=== PATIENT | male | born 1955 | race Asian ===

== ENCOUNTER 2016-03-08 14:22 | Outpatient (CLI) | payer OTHER ==
[~2016-03-08 14:22] MED LIST: ASA LOW DOSE81 MG PO; BYSTOLIC10 MG OR; FURO20TA67 PO; KETOROLAC15 MG/ML IJ; LIVALO2 MG OR; LIVALO2 MG PO; LOTENSIN HCT1 TA2 PO; MEDROL DOSEPAK4 MG OR; METHYLPR SS125 MG IJ
== END 2016-03-08 19:10 | disposition home or self-care (01) ==
LOC: LABW 14:22
DX: B35.1 Tinea unguium (principal)
CPT/HCPCS: 36415; 84450; 84460

== ENCOUNTER 2016-07-23 10:38 | Outpatient (CLI) | payer OTHER ==
[2016-07-23 10:58] LABS: PLATELET COUNT 284 K/uL (142-355)
[2016-07-23 11:43] LABS: POTASSIUM 4.1 mmol/L (3.6-5.2); SODIUM 137 mmol/L (136-145)
== END 2016-07-23 11:40 | disposition home or self-care (01) ==
LOC: LAB 10:38
PROVIDERS: Family Medicine
DX: I10 Essential (primary) hypertension (principal); E78.4 Other hyperlipidemia; G47.33 Obstructive sleep apnea (adult) (pediatric); E66.8 Other obesity; E55.9 Vitamin D deficiency, unspecified; Z12.5 Encounter for screening for malignant neoplasm of prostate; E78.00 Pure hypercholesterolemia, unspecified
CPT/HCPCS: 36415; 80053; 80061; 81000; 82043; 82570; 82652; 83735; 84153; 84439; 84443; 84550; 85027

== ENCOUNTER 2017-06-24 10:11 | Outpatient (CLI) | payer OTHER ==
[2017-06-24 10:51] LABS: PLATELET COUNT 255 K/uL (142-355)
[2017-06-24 11:23] LABS: POTASSIUM 3.6 mmol/L (3.6-5.2)
== END 2017-06-24 21:20 | disposition home or self-care (01) ==
LOC: LABW 10:11
PROVIDERS: Family Medicine
DX: I10 Essential (primary) hypertension (principal); E66.8 Other obesity; E79.0 Hyperuricemia without signs of inflammatory arthritis and tophaceous disease; E55.9 Vitamin D deficiency, unspecified; E78.00 Pure hypercholesterolemia, unspecified; G47.33 Obstructive sleep apnea (adult) (pediatric)
CPT/HCPCS: 36415; 80053; 80061; 81000; 82306; 83735; 84439; 84443; 84550; 85027

== ENCOUNTER 2018-04-17 07:15 | Outpatient (CLI) | payer OTHER ==
[2018-04-17 07:57] LABS: PLATELET COUNT 255 K/uL (142-355)
[2018-04-17 08:18] LABS: POTASSIUM 3.7 mmol/L (3.6-5.2)
== END 2018-04-17 19:32 | disposition home or self-care (01) ==
LOC: RESP 07:15 → LABW 07:15
PROVIDERS: Family Medicine
DX: I10 Essential (primary) hypertension (principal); M19.90 Unspecified osteoarthritis, unspecified site; E78.00 Pure hypercholesterolemia, unspecified; E79.0 Hyperuricemia without signs of inflammatory arthritis and tophaceous disease; E55.9 Vitamin D deficiency, unspecified; R60.0 Localized edema; Z13.1 Encounter for screening for diabetes mellitus
CPT/HCPCS: 36415; 80053; 80061; 81000; 82306; 83036; 84154; 84439; 84443; 84550; 85027; 93005

== ENCOUNTER 2018-07-16 12:48 | Outpatient (CLI) | payer OTHER | END 2018-07-16 23:33 | disposition home or self-care (01) | LOC: RESP 12:48 | DX: R94.31 Abnormal electrocardiogram [ECG] [EKG] (principal) | CPT/HCPCS: 93306 ==

== ENCOUNTER 2020-04-12 08:25 | Outpatient (CLI) | payer OTHER ==
[2020-04-12 09:10] LABS: PLATELET COUNT 235 K/uL (142-355)
[2020-04-12 09:26] LABS: POTASSIUM 3.9 mmol/L (3.6-5.2)
== END 2020-04-12 19:35 | disposition home or self-care (01) ==
LOC: LABW 08:25
PROVIDERS: ATTEND Family Medicine
DX: E79.0 Hyperuricemia without signs of inflammatory arthritis and tophaceous disease (principal); M19.90 Unspecified osteoarthritis, unspecified site; I10 Essential (primary) hypertension; E78.5 Hyperlipidemia, unspecified; K21.9 Gastro-esophageal reflux disease without esophagitis; G47.33 Obstructive sleep apnea (adult) (pediatric); Z68.38 Body mass index [BMI] 38.0-38.9, adult; B35.1 Tinea unguium
CPT/HCPCS: 36415; 80053; 80061; 81000; 83735; 84439; 84443; 84550; 85027